=== PATIENT | male | born 1995 | race Caucasian/White ===

== ENCOUNTER 2017-09-12 21:18 | Emergency (ER) | payer OTHER ==
[2017-09-12] MEDS ORDERED: HYDROcodone/Acetaminophen 7.5/325 mg Tablet ONE (22:49)
== END 2017-09-12 23:07 | disposition home or self-care (01) ==
LOC: SCSER 21:18
DX: T23.242A Burn of second degree of multiple left fingers (nail), including thumb, initial encounter (principal); T31.0 Burns involving less than 10% of body surface; K21.9 Gastro-esophageal reflux disease without esophagitis; X04.XXXA Exposure to ignition of highly flammable material, initial encounter
CPT/HCPCS: 99283